=== PATIENT | female | born 1990 | race Hispanic/Latino ===

== ENCOUNTER 2023-11-06 18:26 | Emergency (ER) | payer BC ==
[~2023-11-06] VITALS: Ht 157.5 cm; Wt 96.8 kg
[2023-11-06 18:38] VITALS: PULSE 83; RESP 16; TEMP 98.6; O2SAT 100
== END 2023-11-06 19:17 | disposition home or self-care (01) ==
LOC: FSED 18:33
DX: N99.821 Postprocedural hemorrhage of a genitourinary system organ or structure following other procedure (principal)
CPT/HCPCS: 85025; 99283